=== PATIENT | male | born 1950 | race Caucasian/White ===

== ENCOUNTER 2017-09-07 11:36 | Outpatient (CLI) | payer MEDICARE | END 2017-09-07 11:37 | disposition critical access hospital (66) | LOC: EMS 11:36 | PROVIDERS: ATTEND Surgery | DX: R41.82 Altered mental status, unspecified (principal); R53.1 Weakness; W19.XXXA Unspecified fall, initial encounter; Y92.007 Garden or yard of unspecified non-institutional (private) residence as the place of occurrence of the external cause | CPT/HCPCS: A0425; A0427 ==

== ENCOUNTER 2017-09-07 12:02 | Emergency (ER) | payer MEDICARE ==
--- NOTE | 2017-09-07 12:05 | ED Physician Documentation ---
History of Present Illness - Stated complaint Stated Complaint: Poss stroke - Additonal information Additional information: hx from pt and EMS 67 male pmhx HTN maybe a fib was fine this AM at 10AM went to post office returned in the truck and parked s difficulty at 1030 at approx 11 AM went looking for him and found him on his hand and knees in the snow with L sided weakness he states he did not hit his head, initially stated he had a FRAZIER then repeatedly stated no FRAZIER no neck pain no chest pain no abd pain Review of Systems Constitutional: denies: Fever Cardiac: denies: Chest pain / pressure Respiratory: denies: Dyspnea GI: denies: Abdominal Pain, Vomiting Musculoskeletal: denies: Neck pain Neurologic: reports: Focal weakness, Numbness, Difficulty speaking, Headache. denies: Head injury Endocrine: denies: Easy bruising / bleeding Immunocompromised: denies: Immunocompromised PD PAST MEDICAL HISTORY - Past Surgical History Past Surgical History: Yes General: Appendectomy HEENT: Tonsil/Adenoidectomy - Allergies Allergies/Adverse Reactions: Allergies Allergy/AdvReac Type Severity Reaction Status Date / Time sulfacetamide sodium * Allergy Severe Unknown Verified 01/11/14 13:40 [From Sulfamide] - Social History Does the pt smoke?: No Smoking Status: Never smoker Does the pt drink ETOH?: No Does the pt have substance abuse?: No - Immunizations Immunizations are current?: No Immunizations: TDAP >10years/unknown - POLST Patient has POLST: No PD ED PE NORMAL - Vitals Vital signs reviewed: Yes - General General: Alert and oriented X 3 - HEENT HEENT: Atraumatic, PERRL. No: EOMI (gaze does not cross L of midline) - Neck Neck: No bony TTP - Cardiac Cardiac: RRR - Respiratory Respiratory: No respiratory distress, Clear bilaterally - Abdomen Abdomen: Soft, Non tender - Derm Derm: Other (diaphoretic) - Neuro Neuro: Alert and oriented X 3. 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, No motor deficit, No sensory deficit, Normal speech Eye Opening: Spontaneous Motor: Obeys Commands Verbal: Oriented GCS Score: 15 Results - Vitals Vitals: Vital Signs - 24 hr 09/07/17 09/07/17 09/07/17 12:01 13:29 13:55 Temperature 36.2 C L Heart Rate 88 44 L 56 L Respiratory 18 16 16 Rate Blood Pressure 106/71 90/46 L 90/56 L O2 Saturation 98 92 93 Oxygen O2 Source Room air - EKG (time done) 1237 Rate: Rate (enter#) (78) Rhythm: Atrial fibrillation, Other (freq PVCs) Pinson: LAD Intervals: No: Normal NH Ischemia: Non specific changes - Labs Labs: Laboratory Tests 09/07/17 09/07/17 09/07/17 12:05 12:05 12:05 WBC 10.3 RBC 4.40 L Hgb 13.9 L Hct 40.4 L MCV 91.8 MCH 31.5 H MCHC 34.4 RDW 13.9 Plt Count 156 MPV 9.7 Neut # 5.4 Lymph # 3.7 H [place] # 0.8 Eos # 0.2 Baso # 0.1 Absolute Nucleated RBC 0.00 Nucleated RBC % 0.0 PT 15.6 H INR 1.4 H APTT 27.3 Sodium 138 Potassium 3.1 L Chloride 101 Carbon Dioxide 21 Anion Gap 16.0 H BUN 20 Creatinine 1.4 H Estimated GFR (MDRD) 50 L Glucose 112 H Calcium 8.9 Troponin I 09/07/17 12:05 WBC RBC Hgb Hct MCV MCH MCHC RDW Plt Count MPV Neut # Lymph # [place] # Eos # Baso # Absolute Nucleated RBC Nucleated RBC % PT INR APTT Sodium Potassium Chloride Carbon Dioxide Anion Gap BUN Creatinine Estimated GFR (MDRD) Glucose Calcium Troponin I < 0.04 - Rads (name of study) CTH Radiology: Other (per my read no ICH awaiting rad read - per rad no bleed, chronic small vessel dz, no acute infarct) CTA head Radiology: See rad report (awaiting rad - per rad no occulusion R MCA, internal cervical arteries large thrombus filling defect R internal carotid, good collateral perfusion via ant communicating circ) CTA neck Radiology: Other (call fro radiology Dr Dewitt = type A aortic dissection back to aortic valve but no pericardial effusin, active extravasation into false lumen) CTA chest abd pelvis Radiology: Other (per my read type A dissection extending past kidney with decreased renal perfusion L kidney, per rad read aciute type A dissection, defect wall ascending aorta with blush contrast into false lumen is likely origin, no pericardial effusion but extends to aortic root and extends to L common iliac artery, kidney symm opacified, main arteries off true lumen) PD MEDICAL DECISION MAKING - ED course ED course: acute L sided weakness numbness gaze palsy and dysarthria FSBS 99 [employer] A[employer] last seen nl at [address] but able to drive and park at 1030 so likely still nl then as well initial concen was acute stroke code stroke called - pt to radiology for CT head CTA head and neck returned and neuro from [facility] on tele stroke to eval pt and discuss possible TPA etc but CTA neck showed dissection or aortic arch - type A - dock grader noted and called from CT and then we scanned the chest abd pelvis as well shows 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, active leaking into false lumen form defect in ascending aorta cancelled tele stroke [place] [facility] [place] pt in transfer - transfer center confirmed bed and dispatched [facility] during the initial call - still a while for [facility] to be able to reach Kaela pt had gradually decreasing BPs despite IVF pt and updated re critical nature of this process and that even at the , even with possible surgery etc he might from this dissection remained at bedside throughout pt stay and was allowed to fly with her to - TPA CVA checklist Inclusion crititeria: positive: Sig neuro deficit Absolute contraindications: negative: SBP>185 DBP>110 s/p tx, INR >1.7, Known bleeding disorder, Surgery/trauma < 15 days, Seizure at onset, Internal bleed < 22 days, Brain/spine surg < 3 m, Head trauma < 3 m, CVA < 3 months, Any hx ICH, Any hx brain aneurysm, Any hx brain AVM, Any hx brain tumor, Suspect SAH Relative contraindications: negative: Too severe (NIHSS>22), Too mild, Rapid improvement, Glusose <50 >400, Life expectancy < 1 yr, Severe comorbid illness, Bacterial endocarditis, Severe hepatic dz, Severe renal dz, Hemorrhagic eye condition, Septic thrombophlebitis, Infected AV shunt, On coumadin, , Advanced age, Left heart thrombus Absolute contraindications if 3-4.5 hr: negative: Coumadin (any INR), Age > 80, Combo prior CVA & DM Departure - Departure Disposition: 02 Transfer Acute Care Hosp Clinical Impression: Aortic dissection Qualifiers: Aortic location: thoracic aorta Qualified Code(s): I71.01 - Dissection of thoracic aorta Condition: Serious Follow-Up: Daniel Coronado PA [Primary Care Provider] - Discharge Date/Time: 09/07/17 14:02 NIHSS - Time Time: 11:55 - Level of Consciousness Level of consciousness: (0) Alert, Keenly responsive LOC Questions: (0) Answers both Q's correct LOC Commands: (0) Performs both correctly - Gaze Best Gaze: (1) Partial gaze palsy - Visual Visual: (0) No loss - Facial Palsy Facial Palsy: (1) Minor paralysis - Motor Arms (both separate) Motor Arm (right): (0) No drift Motor Arm (left): (4) No movement - Motor Legs (both separate) Motor Leg (right): (0) No drift Motor Leg (left): (4) No movement - Limb Ataxia Limb Ataxia: (0) Absent - Sensory Sensory: (1) [id number] loss - Best Language Best Language: (0) No aphasia - Dysarthria Dysarthria: (1) [id number] dysarthria - Extinction and Inattention (formally neg Extinction and inattention: (0) No abnormality - Total Score/Results Total Score/Result: 12
[2017-09-07] MEDS ORDERED: IOPAMIDOL-300 100 ML VIAL ONE ×2 (12:16→15:08)
[2017-09-07 12:34] LABS: BASOPHILS # (AUTO) 0.1 10^3/uL (0.0-0.1); BASOPHILS % (AUTO) 0.6 %; EOSINOPHILS # (AUTO) 0.2 10^3/uL (0.0-0.7); EOSINOPHILS % (AUTO) 2.2 %; HGB - HEMOGLOBIN 13.9 g/dL (14.0-18.0); LYMPHOCYTES # (AUTO) 3.7 10^3/uL (1.5-3.5); LYMPHOCYTES % (AUTO) 36.2 %; MEAN CORPUSCULAR HEMOGLOBIN 31.5 pg (27.0-31.0); MEAN CORPUSCULAR HGB CONC 34.4 g/dL (32.0-36.0); MEAN CORPUSCULAR VOLUME 91.8 fL (80.0-94.0); MEAN PLATELET VOLUME 9.7 fL (7.4-11.4); MONOCYTES # (AUTO) 0.8 10^3/uL (0.0-1.0); MONOCYTES % (AUTO) 8.2 %; NEUTROPHILS # (AUTO) 5.4 10^3/uL (1.5-6.6); NEUTROPHILS % (AUTO) 52.8 %; PLT - PLATELET COUNT 156 10^3/uL (130-450); RED CELL DISTRIBUTION WIDTH 13.9 % (12.0-15.0); WHITE BLOOD COUNT 10.3 x10^3/uL (4.8-10.8)
[2017-09-07 12:35] LABS: INR 1.4 (0.8-1.2); PT - PROTHROMBIN TIME 15.6 secs (9.9-12.6)
[2017-09-07 12:36] LABS: CALCIUM 8.9 mg/dL (8.5-10.3); CREATININE 1.4 mg/dL (0.6-1.2)
[2017-09-07] MEDS ORDERED: SODIUM CHLORIDE 0.9% 1,000 ML IV ONE ×2 (13:05→13:24)
--- NOTE | 2017-09-07 13:10 | CT Preliminary Report ---
Exam: CT HEAD ANGIO Impression: 1. No CT evidence at this time for acute intracranial hemorrhage or acute ischemic cortical infarct. 2. No evidence for intracranial large vessel occlusion. 3. Right cervical ICA thrombus filling defect is present and reported separately in detail with the n elif CTA. 4. Diffuse atrophy and extensive amorphous cerebral hypodensity that may be from small vessel ischemi c disease. [facility] SITE ID: [id number]
--- NOTE | 2017-09-07 13:26 | CT Report ---
EXAM: CT ANGIOGRAM HEAD. CT SCAN OF THE HEAD WITHOUT AND WITH CONTRAST. EXAM DATE: 09/07/2017 12:37 PM CLINICAL HISTORY: Acute left-sided weakness. COMPARISON: None. TECHNIQUE: - CT Scan Head: Using a multidetector scanner, axial images were acquired from the foramen magnum to the skull vertex prior to and following contrast administration. - CT Angiogram: Using a multidetector scanner, high-resolution axial images were acquired from the sk ull base through vertex following rapid infusion of intravenous contrast. Reformats: Multiplanar MIP reformats were reconstructed. Nascet criteria used for stenosis measurement. IV Contrast: Without and with 140 mL Isovue-300. In accordance with CT protocol optimization, one or more of the following dose reduction techniques w ere utilized for this exam: automated exposure control, adjustment of mA and/or KV based on patient s ize, or use of iterative reconstructive technique. FINDINGS: Brain CT without contrast: No CT evidence for acute ischemic infarct or acute intracranial hemorrhage. Diffuse atrophy and moderately prominent amorphous white matter hypoattenuation, likely changes of ag ing and chronic microangiopathy. Intact calvarium. No acute sinus or mastoid disease. Brain CT with contrast: No intracranial enhancing tumor-like mass. Head CT angiogram: Cervical carotid artery abnormality is reported separately. No proximal intracranial large artery occlusion. Both distal internal carotid arteries are patent at and distal to the cavernous segments. Mild vertebral artery luminal stenosis bilaterally where there is focal atherosclerotic calcification just above the foramen magnum. No evidence for t[place]lina of Brower aneurysm. Contrast opacification of the major dural venous sinuses i s present as expected. Patent anterior communicating artery and anterior cerebral artery A1 segments. No posterior communica ting arteries identified. IMPRESSION: 1. No CT evidence at this time for acute intracranial hemorrhage or acute ischemic cortical infarct. 2. No evidence for intracranial large vessel occlusion. 3. Right cervical ICA thrombus filling defect is present and reported separately in detail with the n elif CTA. 4. Diffuse atrophy and extensive amorphous cerebral hypodensity that may be from small vessel ischemi c disease. Findings discussed by telephone with the ordering provider Dr. Charissa Kimball 1:05 PM 09/07/2017. [facility] Referring Provider Line: [phone] SITE ID: [id number]
--- NOTE | 2017-09-07 13:26 | CT Preliminary Report ---
Exam: CT NECK ANGIO IMPRESSION: 1. Probable Type A dissection of the thoracic aorta with large circumferential and expansile intramur al hematoma. 2. Dissection appears to extend most notably into the right cervical carotid artery and also appears to involve the proximal left subclavian artery and innominate artery. 3. Significant appearing stenosis of the right cervical carotid artery at multiple levels, this vesse l contains a large long tubular intraluminal thrombus filling defect which places the patient at risk for intracranial embolus and infarct. 4. No evidence for focal flow limiting stenosis of the left cervical carotid artery. 5. Patent cervical vertebral arteries. The origin of the left cervical vertebral artery is obscured b y a dense calcified plaque and potential stenosis in this location cannot be fully evaluated. [facility] SITE ID: [id number]
--- NOTE | 2017-09-07 14:01 | CT Report ---
EXAM: CT ANGIOGRAM CHEST, ABDOMEN AND PELVIS EXAM DATE: 09/07/2017 12:46 PM. CLINICAL HISTORY: Dissection seen on stroke imaging. COMPARISONS: CTA neck earlier today. TECHNIQUE: Thin section spiral CT angiography of the chest, abdomen and pelvis during IV contrast administration . IV Contrast: 140 cc Isovue-300. Reconstructions: Coronal, sagittal, and 3D MIP reconstructions of t he aorta. In accordance with CT protocol optimization, one or more of the following dose reduction techniques w ere utilized for this exam: automated exposure control, adjustment of mA and/or KV based on patient s ize, or use of iterative reconstructive technique. FINDINGS: Vascular Structures: Noncontrast images could not be obtained. There is diffuse intramural hematoma of the thoracic and abdominal aorta generally circumferentially surrounding the patent aortic lumen, with extension into left common and proximal left external iliac arteries. A small bird beak intimal defect anterolaterally on the right in the ascending aorta with a collectio n of heterogeneous hyperdense contrast in the otherwise nonenhancing intramural hematoma (66/4). The intramural hematoma is circumferential and extends down to the aortic root. Overall diameter of the a scending aorta measures up to 7.1 cm in diameter, with the patent lumen at 2.8 cm in diameter (madera l 50). Patent coronary ostia. Conventional arch configuration. There is circumferential hypodense mat erial around the patent right innominate and proximal right common carotid arteries. Transverse arch including circumferential intramural hematoma measures 4.1 cm and proximal descending aorta 4.5 cm in maximal diameter. There is a small collection of hyperdense contrast posteriorly in the intramural hematoma at the level of the thoracoabdominal junction. Extrinsic compression by hemat natalie on the lower descending thoracic aorta, with patent lumen measuring 2.2 x 1.2 cm and overall aort ic diameter 3.2 cm (114). The intramural hematoma compresses the patent lumen of the upper/mid abdominal aorta. At the level of the celiac axis overall aortic diameter is 4 cm, with patent lumen 2.3 x 1.4 cm (145). Patent celiac axis, SMA, VICKIE, and bilateral renal arteries. A small accessory right renal artery supplies the righ t midpole. Grossly nearly symmetrical bilateral renal parenchymal enhancement. Overall aortic diameter at the level of the renal arteries 2.9 cm and above the aortic bifurcation 2. 6 cm in diameter. Left common iliac artery with eccentric intramural hematoma measures 1.8 cm in maxi mal diameter and proximal left external iliac artery 1.4 cm. No periaortic fluid or hematoma. Bilateral pulmonary arteries are not well-opacified given arterial phase contrast bolus timing. Lungs/Pleura: No consolidation or vascular congestion. Degenerative changes of the lower lungs. No pl eural effusion or pneumothorax. Mediastinum: Bobb-ci-qxhgyxtf cardiomegaly without pericardial effusion. Small to borderline mediasti nal nodes up to 1 cm in diameter in paratracheal and precarinal regions. Possible mildly enlarged rig ht hilar node 1.4 cm short axis. Abdominal Organs: Grossly unremarkable liver, spleen, pancreas, and adrenal glands. Normal renal size without hydronephrosis. A small parapelvic right renal cyst. Peritoneal Cavity: Moderate hiatus hernia predominantly of the peritoneal fat. No intestinal dilatati on or significant mesenteric edema. No free fluid or free air. Moderate stool distends the rectal vau lt. No adenopathy by CT size criteria. Retroperitoneum: No hematoma. Nonspecific small periaortic lymph nodes. Pelvic Organs: Partially opacified suboptimally distended bladder without focal lesion identified. Mi ld prostatic enlargement. No adenopathy evident. Bones: Mild scoliosis and degenerative changes of the spine. IMPRESSION: 1. Extensive intramural hematoma/type A dissection of thoracic and abdominal aorta was extension into left common and proximal left external iliac arteries. A small intimal defect in the ascending aorta with localized collection of hyperdense contrast in the otherwise hypodense intramural hematoma. Sma ll collection of contrast posteriorly in the intramural hematoma at the level of the thoracoabdominal junction. Overall ascending thoracic aortic diameter (including intramural hematoma) measures 7.1 cm . Intramural hematoma extends to the right innominate and proximal right common carotid arteries. 2. The intramural hematoma is generally circumferential and extends down to the aortic root. No peric ardial effusion. 3. Major abdominal branch vessels are opacified from the true aortic lumen. Grossly symmetrical bilat eral renal parenchymal enhancement, noting a small accessory right renal artery. 4. Mild to moderate cardiomegaly. 5. Nonspecific borderline/mild mediastinal and probable right hilar adenopathy. No intra-abdominal ad enopathy. 6. Hiatus hernia. 7. No other acute process identified in the abdomen and pelvis. Critical results: Findings discussed with the referring physician by phone at 1:12 PM. [facility] Referring Provider Line: [phone] SITE ID: [id number]
--- NOTE | 2017-09-07 14:30 | CT Report ---
EXAM: CT ANGIOGRAM NECK EXAM DATE: 09/07/2017 12:37 PM. CLINICAL HISTORY: Acute stroke symptoms, left side weakness. COMPARISON: None. TECHNIQUE: Routine axial helical imaging was performed from the skull base through the aortic arch. R econstructions: Routine multiplanar 3D MIP reconstructions. IV Contrast: 80 mL Isovue 300. Evaluation of arterial stenosis is based on a NASCET method of measurement. In accordance with CT protocol optimization, one or more of the following dose reduction techniques w ere utilized for this exam: automated exposure control, adjustment of mA and/or KV based on patient s ize, or use of iterative reconstructive technique. FINDINGS: Type A thoracic aortic dissection, please see chest CT angiogram for additional detail. Moderate to severe origin stenosis of the right common carotid artery. Aortic dissection likely exten ds distally into the right cervical carotid artery. Diffuse abnormal wall thickening or hypo-enhancem ent of a portion of the distorted lumen creates the appearance of moderately prominent right common c arotid artery stenosis distal to its origin. In the mid to distal right common carotid artery and ext ending into much of the right cervical internal carotid artery is a long tubular intraluminal thrombu s filling defect creating marked luminal stenosis. This is discontinuous in the high cervical ICA but appears to continue also in the horizontal petrous segment of the right ICA creating significant lum inal contrast effacement. The right cavernous ICA appears to be maintained. No evidence for acute abnormality, significant stenosis, or focal filling defect of the left cervical carotid artery. This vessel appears to arise from and communicate with the more strongly opacified p resumably true lumen of the top of the aortic arch. No flow-limiting stenosis of the left subclavian artery origin. Stenosis of the innominate artery is present, the dissection likely extends into this artery branch which does appear to communicate with the true lumen at the top of the aortic arch. No flow limiting stenosis of the proximal right subclavian artery. No evidence for acute abnormality or focal flow limiting stenosis of the right cervical vertebral art nita. The lumen of the origin of the left cervical vertebral artery is obscured by densely calcified a therosclerotic plaque and associated stenosis cannot be accurately evaluated. More distally, the left cervical vertebral artery shows no evidence for acute abnormality or flow-limiting stenosis. Note that detailed arterial evaluation of the neck is limited, mixed venous and arterial contrast opa cification with suboptimal concentration/density of arterial luminal opacification. IMPRESSION: 1. Probable Type A dissection of the thoracic aorta with large circumferential and expansile intramur al hematoma. 2. Dissection appears to extend most notably into the right cervical carotid artery, but also appears to involve the proximal left subclavian artery and innominate artery. 3. Significant appearing stenosis of the right cervical carotid artery at multiple levels, this vesse l contains a large long tubular intraluminal thrombus filling defect which places the patient at risk for intracranial embolus and infarct. 4. No evidence for focal flow limiting stenosis of the left cervical carotid artery. 5. Patent cervical vertebral arteries. The origin of the left cervical vertebral artery is obscured b y a dense calcified plaque and potential stenosis in this location cannot be fully evaluated. [facility] Referring Provider Line: [phone] SITE ID: [id number]
[2017-09-07] MEDS: IOPAMIDOL-300 100 ML VIAL IVP ONE ×2 (14:59→15:03)
[2017-09-07 15:09] VITALS: BP 90/56
== END 2017-09-07 14:02 | disposition short-term general hospital (02) ==
LOC: SUPCPDRO 12:02 → ED 12:02
DX: I71.01 Dissection of thoracic aorta (principal); I10 Essential (primary) hypertension; I48.91 Unspecified atrial fibrillation
CPT/HCPCS: 36415; 70496; 70498; 71275; 74174; 80048; 84484; 85025; 85610; 85730; 93005; 96360; 99284; 99285; Q9967